=== PATIENT | female | born 1995 | race Caucasian/White ===

== ENCOUNTER 2020-04-29 09:06 | Observation (INO) | payer OTHER, BC ==
[2020-04-29] MEDS ORDERED: Lactated Ringers 1,000 ML IV ONE (10:17)
[2020-04-29] MEDS ORDERED: Celestone Soluspan 6MG/ML IM ONE (10:19)
[2020-04-29] MEDS ORDERED: Celestone Soluspan 6MG/ML ONE (10:22)
[2020-04-29 11:31] VITALS: BP 116/64; PULSE 90
== END 2020-04-29 10:50 | disposition home or self-care (01) ==
LOC: WHC 09:06 → OB 10:15 → UNDOADMOB 10:15 → UNDODISOB 10:50
PROVIDERS: ADMIT Obstetrics & Gynecology; ATTEND Obstetrics & Gynecology
DX: Z34.02 Encounter for supervision of normal first pregnancy, second trimester (principal)
CPT/HCPCS: 87081; 87086; 96372; G0378; 59425; J0702

== ENCOUNTER 2020-05-01 08:45 | Observation (INO) | payer OTHER, BC ==
[2020-05-01 10:20] VITALS: BP 106/61; PULSE 90
== END 2020-05-01 09:40 | disposition home or self-care (01) ==
LOC: OB 08:45
PROVIDERS: ADMIT Obstetrics & Gynecology; ATTEND Obstetrics & Gynecology
DX: Z34.03 Encounter for supervision of normal first pregnancy, third trimester (principal)
CPT/HCPCS: 59025; G0378

== ENCOUNTER 2020-05-30 03:09 | Inpatient (IN) | payer OTHER, BC ==
[2020-05-30] MEDS ORDERED: PITOCIN 30 UNITS/ LR 500 ML 500 ML IV ONE (03:25)
[2020-05-30] MEDS ORDERED: Lactated Ringers 1,000 ML IV ONE (03:26)
[2020-05-30] MEDS: Lactated Ringers 1,000 ML IV SCH ×2 (03:30→09:53)
[2020-05-30] MEDS ORDERED: XYLOCAINE 1% HCL 20 ML MDV ONE (04:06)
[2020-05-30] MEDS ORDERED: PITOCIN 30 UNITS/ LR 500 ML 30 UNITS/500 ML IV.SOLN. IV SCH (04:30)
[2020-05-30] MEDS ORDERED: TYLENOL EXTRA STRENGTH 500 MG PO PRN (05:47)
[2020-05-30] MEDS ORDERED: LANSINOH 40 GM TOP PRN (05:47)
[2020-05-30] MEDS ORDERED: TUCKS TP PRN (05:47)
[2020-05-30] MEDS ORDERED: Anucort-HC SUPPOSITORY PR PRN (05:47)
[2020-05-30] MEDS ORDERED: Dulcolax 10 MG SUPP PR PRN (05:47)
[2020-05-30] MEDS ORDERED: Dermoplast Spray TP PRN (05:47)
[2020-05-30] MEDS ORDERED: CORTISONE 1% CREAM TP PRN (05:47)
[2020-05-30] MEDS ORDERED: Mylicon 80MG PO PRN (05:47)
[2020-05-30] MEDS ORDERED: MOTRIN 400 MG PO PRN (05:47)
[2020-05-30 05:50] LABS: Hematocrit 36.9 % (35-47); Hemoglobin 12.5 gm/dl (12.0-16.0); Mean Cell Volume 88.3 fl (78-100); Mean Corpuscular Hemoglobin 29.9 pg (26-32); Mean Corpuscular Hgb Concent. 33.9 g/dl (32-36); Mean Platelet Volume 11.3 fl (7.5-11.0); Platelet Count 234 K/mm3 (150-450); Red Blood Count 4.18 M/mm3 (4.1-5.4); Red Cell Distribution Width 13.5 % (11.5-14.0); White Blood Count 22.4 K/mm3 (4.0-10.5)
[2020-05-30 09:45] LABS: Amphetamine,Urine NEGATIVE (NEGATIVE); Barbiturate,Urine NEGATIVE (NEGATIVE); Benzodiazepine,Urine NEGATIVE (NEGATIVE); Cocaine,Urine NEGATIVE (NEGATIVE); Methadone,Urine NEGATIVE (NEGATIVE); Opiate,Urine NEGATIVE (NEGATIVE); PCP,Urine NEGATIVE (NEGATIVE); THC,Urine NEGATIVE (NEGATIVE)
[2020-05-30] MEDS: Colace 100 MG PO SCH ×2 (10:59→21:45)
[2020-05-30] MEDS: FERREX 150 PO SCH (10:59)
[2020-05-30 11:17] LABS: ATYPICAL LYMPHS 1 %; BAND 1 % (0.0-2.0); Lymphocytes 8 % (24-44); Monocyte 8 % (0.0-12.0); Neutrophils 82 % (36.0-66.0); Platelet Estimate NORMAL (NORMAL); Total Cells Counted 100; Toxic Granulation 1+
[2020-05-30] MEDS: SYNTHROID 50 MCG PO SCH (16:43)
[2020-05-30] MEDS: THERAGRAN MULTIVITAMIN PO SCH (21:45)
[2020-05-31 04:50] LABS: Hematocrit 31.8 % (35-47); Hemoglobin 10.3 gm/dl (12.0-16.0); Mean Cell Volume 89.6 fl (78-100); Mean Corpuscular Hgb Concent. 32.4 g/dl (32-36); Mean Platelet Volume 11.3 fl (7.5-11.0); Platelet Count 225 K/mm3 (150-450); Red Blood Count 3.55 M/mm3 (4.1-5.4); Red Cell Distribution Width 13.8 % (11.5-14.0); White Blood Count 17.2 K/mm3 (4.0-10.5)
[2020-05-31 06:21] LABS: Eosinophil 2 % (0.00-3.0); Lymphocytes 26 % (24-44); Monocyte 3 % (0.0-12.0); Neutrophils 69 % (36.0-66.0); Platelet Estimate NORMAL (NORMAL); Total Cells Counted 100
[2020-05-31] MEDS: Colace 100 MG PO SCH ×2 (09:31→22:21)
[2020-05-31] MEDS: SYNTHROID 50 MCG PO SCH (09:31)
[2020-05-31] MEDS: FERREX 150 PO SCH (09:31)
[2020-05-31] MEDS ORDERED: NON-FORMULARY ITEM (Prenatal Vits W-Ca,Fe,Fa(<1mg) [Prenatal] 1 EACH) PO SCH (10:00)
[2020-05-31] MEDS: THERAGRAN MULTIVITAMIN PO SCH (22:21)
[2020-06-01 04:10] VITALS: O2SAT 98
[2020-06-01 08:03] VITALS: BP 109/59; PULSE 91
--- NOTE | 2020-06-01 09:27 | PCM.NOTE ---
Date and Time: 06/01/20924 Subjective Assessment: PPD 2 PT RESTING IN BED AND DOING WELL AMBULATING AND TOLERATING DIET VSS AFEBRILE ABD; SOFT UTERUS; FIRM LOCHIA; MILD EXT; NO CLUBBING CYANOSIS OR EDEMA A/P SP PPD 2 DC HOME TODAY FU OFFICE 6 WKS OBJECTIVE DATA Vital Signs: Vital Signs - 24 hr Temp Pulse Resp BP Pulse Ox 06/01/20 08:00 98.6 F 91 H 18 109/59 06/01/20 02:00 98.4 F 75 18 104/59 98 05/31/20 20:00 98.4 F 85 20 117/74 98 05/31/20 16:00 98.3 F 85 18 107/64 Pain Assessment - Last Documented Pain Intensity 0 Pain Scale Used 0-10 Pain Scale Intake and Output: Intake & Output 05/29/20 05/30/20 05/31/20 06/01/20 11:59 11:59 11:59 11:59 Intake Total 1920 2039 1789 Balance 1920 2039 1789 Weight 153 kg Lab Results: Lab Results-Last 24 Hours 05/30/20 Range/Units 05:35 Hep Bs Antigen Non Reactive (Non Reactive)
--- NOTE | 2020-06-01 09:36 | PCM.DCORD ---
- Discharge Prescriptions: No Action Levothyroxine Sodium 50 mcg PO DAILY Vits W-Ca,Fe,FA(<1Mg) [] 1 each PO DAILY Follow up with: ROLAN ENCISO DO [Primary Care Provider] - Call for Appointment (SHOULD FU IN OFFICE IN 6 WKS)
--- NOTE | 2020-06-01 09:39 | PCM.DS ---
Discharge Summary Date of Admission: 05/30/20 03:10 Date of Discharge: JUNE 01, 2020 Admitting Physician: ROLAN ENCISO DO Primary Care Provider: ROLAN ENCISO DO Allergies Allergies No Known Drug Allergies Allergy (Verified 05/30/20 07:51) Hospital Summary - Hospital Course Hospital Course: PT ADMITTED ON JUN 01 FOR BEING IN LABOR AT 38 PLUS WEEKS GESTATION AND DELIVERED LIVE BABY BOY WITHOUT COMPLICATION. DURING PERIOD PT DID VERY WELL ABLE TO AMBULATE AND TOLERATE DIET. PT HAD INTACT PERINEUM. PT ALSO HAD STABLE H/H DURING CARE AND ON THIS DAY DAY 2 PT STABLE FOR DISCHARGE. PT GIVEN INSTRUCTIONS TO FU IN OFFICE IN 6 WKS FOR CARE AND ALL QUESTIONS ANSWERED TO HER SATISFACTION. - Vitals & Intake/Output Vital Signs: Vital Signs Temperature 98.6 F 06/01/20 08:00 Pulse Rate 91 H 06/01/20 08:00 Respiratory Rate 18 06/01/20 08:00 Blood Pressure 109/59 06/01/20 08:00 O2 Sat by Pulse Oximetry 98 06/01/20 02:00 Intake & Output: Intake & Output 05/29/20 05/30/20 05/31/20 06/01/20 11:59 11:59 11:59 11:59 Intake Total 1920 2039 1789 Balance 1920 2039 1789 Weight 153 kg - Lab Result Diagrams: 05/31/20 04:19 Lab Results-Last 24 Hrs: Lab Results-Last 24 Hours 05/30/20 Range/Units 05:35 Hep Bs Antigen Non Reactive (Non Reactive) - Discharge Disposition: Home, Self-Care Condition: Stable Prescriptions: No Action Levothyroxine Sodium 50 mcg PO DAILY Vits W-Ca,Fe,FA(<1Mg) [] 1 each PO DAILY Follow up with: ROLAN ENCISO DO [Primary Care Provider] - Call for Appointment (SHOULD FU IN OFFICE IN 6 WKS)
== END 2020-06-01 11:50 | disposition home or self-care (01) | DRG 807 ==
LOC: OB 03:09 → OBSVTOIN 03:10
PROVIDERS: ADMIT Obstetrics & Gynecology; ATTEND Obstetrics & Gynecology
PROC: 10E0XZZ Delivery of Products of Conception, External Approach (ICD-10-PCS; principal; 2020-05-30)
DX: O99.89 Other specified diseases and conditions complicating pregnancy, childbirth and the puerperium (principal); Z37.0 Single live birth; R00.1 Bradycardia, unspecified; Z3A.38 38 weeks gestation of pregnancy
CPT/HCPCS: 36415; 80307; 85025; 87340; G0378; J2590; A9270-GY

== ENCOUNTER 2022-05-20 10:05 | Observation (INO) | payer BC ==
[2022-05-20 10:51] VITALS: O2SAT 100
[2022-05-20 11:02] VITALS: PULSE 103
[2022-05-20 11:08] VITALS: BP 127/57
== END 2022-05-20 12:05 | disposition home or self-care (01) ==
LOC: OB 10:05
PROVIDERS: ADMIT Obstetrics & Gynecology; ATTEND Obstetrics & Gynecology
DX: Z34.83 Encounter for supervision of other normal pregnancy, third trimester (principal); Z3A.37 37 weeks gestation of pregnancy
CPT/HCPCS: 99213; G0378

== ENCOUNTER 2022-05-26 05:05 | Inpatient (IN) | payer BC ==
[~2022-05-26 05:05] MED LIST: Adacel Vial IM ONE; Ambien 10 MG PO PRN; Anucort-HC SUPPOSITORY PR PRN; CORTISONE 1% CREAM TP PRN; Dermoplast Spray TP PRN; Dulcolax 10 MG SUPP PR PRN; LANSINOH 40 GM TOP PRN; MOTRIN 400 MG PO PRN; Mylicon 80MG PO PRN; NORCO 5/325 MG PO PRN; PITOCIN 30 UNITS/ LR 500 ML 30 UNITS/500 ML PLAST..BAG IV SCH; TUCKS TP PRN; TYLENOL EXTRA STRENGTH 500 MG PO PRN; XYLOCAINE 1% HCL 20 ML MDV IJ PRN; Zofran 4 MG/2 ML VIAL IV PRN
[2022-05-26] MEDS: Lactated Ringers 1,000 ML IV SCH ×2 (05:40→22:42)
[2022-05-26 05:52] LABS: Absolute Neutrophil Ct (ANC) 6.51 x10^3/uL (1.4-6.9); Basophil (Absolute #) 0.06 x10^3/uL (0-0.4); Eosinophil % 1.7 % (0.00-5.0); Eosinophil (Absolute #) 0.18 x10^3/uL (0-0.5); Hematocrit 31.8 % (35-47); Hemoglobin 10.3 g/dL (12.0-16.0); Lymphocyte (Absolute #) 2.88 x10^3/uL (1.0-4.6); Lymphocytes % 26.7 % (24.0-44.0); Mean Cell Volume 85.9 fL (78-100); Mean Corpuscular Hemoglobin 27.8 pg (26-32); Mean Corpuscular Hgb Concent. 32.4 g/dL (32-36); Mean Platelet Volume 10.6 fL (7.5-11.0); Monocyte (Absolute #) 0.84 x10^3/uL (0.0-1.3); Monocytes % 7.8 % (0.0-12.0); Neutrophil % 60.1 % (36.0-66.0); Platelet Count 206 x10^3/uL (150-450); Red Cell Distribution Width 12.7 % (11.5-14.0); White Blood Count 10.8 x10^3/uL (4.0-10.5)
[2022-05-26] MEDS ORDERED: OMNIPEN 2 GM*** 2 G in Sodium Chloride 100ML MINI-BAG PLUS 100 ML IV ONE (06:00)
[2022-05-26 06:49] LABS: ABO TYPING O; Antibody Screen NEGATIVE (NEGATIVE); RH TYPING POSITIVE
[2022-05-26 06:59] LABS: Amphetamine,Urine NEGATIVE (NEGATIVE); Barbiturate,Urine NEGATIVE (NEGATIVE); Benzodiazepine,Urine NEGATIVE (NEGATIVE); Methadone,Urine NEGATIVE (NEGATIVE); Opiate,Urine NEGATIVE (NEGATIVE); PCP,Urine NEGATIVE (NEGATIVE); THC,Urine NEGATIVE (NEGATIVE)
[2022-05-26] MEDS: Docusate Sodium 100 MG PO SCH ×2 (08:10→21:57)
[2022-05-26] MEDS: FERREX 150 PO SCH (08:11)
[2022-05-26] MEDS: OMNIPEN 1 GM*** 1 GM in Sodium Chloride 100ML MINI-BAG PLUS 100 ML IV SCH ×2 (09:27→22:42)
[2022-05-27 05:12] LABS: Absolute Neutrophil Ct (ANC) 9.45 x10^3/uL (1.4-6.9); Basophil (Absolute #) 0.07 x10^3/uL (0-0.4); Eosinophil % 1.7 % (0.00-5.0); Eosinophil (Absolute #) 0.24 x10^3/uL (0-0.5); Hematocrit 31.2 % (35-47); Lymphocyte (Absolute #) 3.31 x10^3/uL (1.0-4.6); Lymphocytes % 22.9 % (24.0-44.0); Mean Cell Volume 86.4 fL (78-100); Mean Corpuscular Hemoglobin 27.7 pg (26-32); Mean Corpuscular Hgb Concent. 32.1 g/dL (32-36); Mean Platelet Volume 10.5 fL (7.5-11.0); Monocytes % 7.6 % (0.0-12.0); Neutrophil % 65.2 % (36.0-66.0); Platelet Count 215 x10^3/uL (150-450); Red Blood Count 3.61 x10^6/uL (4.1-5.4); Red Cell Distribution Width 12.6 % (11.5-14.0); White Blood Count 14.5 x10^3/uL (4.0-10.5)
--- NOTE | 2022-05-27 07:50 | PCM.NOTE ---
Date and Time: 05/27/22747 Subjective Assessment: ppd 1 sp pt resting in bed and doing well eager to go home today vss afebrile abd; soft uterus; firm lochia; mild a/p sp ppd 1 dc home today fu office in 3 wks OBJECTIVE DATA Vital Signs: Vital Signs - 24 hr Temp Pulse Resp BP BP Pulse Ox 05/27/22 04:00 97.5 F 81 17 105/62 99 05/27/22 00:00 98.9 F 72 17 103/52 100 05/26/22 20:00 98.8 F 90 17 101/60 100 05/26/22 16:00 86 05/26/22 14:45 82 18 99/56 05/26/22 14:15 78 20 106/57 05/26/22 14:00 93 H 20 94/50 97 05/26/22 13:45 86 18 98/52 05/26/22 13:30 86 20 98/52 05/26/22 13:15 22 05/26/22 13:00 22 05/26/22 12:45 18 05/26/22 12:30 89 18 100/59 05/26/22 12:15 89 18 100/59 05/26/22 12:00 183 H 18 104/59 104/59 05/26/22 11:45 88 18 96/55 05/26/22 11:30 86 18 93/53 05/26/22 11:15 86 18 93/53 05/26/22 11:00 86 103/56 97 05/26/22 10:45 86 107/56 97 05/26/22 08:45 98.6 F 106 H 20 107/56 97 Pain Assessment - Last Documented Pain Intensity [Bilateral 0 Anterior] Pain Intensity 0 Intake and Output: Intake & Output 05/24/22 05/25/22 05/26/22 05/27/22 11:59 11:59 11:59 11:59 Intake Total 1280 Balance 1280 Weight 72.121 kg Lab Results: Lab Results-Last 24 Hours 05/27/22 Range/Units 05:05 WBC 14.5 H (4.0-10.5) x10^3/uL RBC 3.61 L (4.1-5.4) x10^6/uL Hgb 10.0 L (12.0-16.0) g/dL Hct 31.2 L (35-47) % MCV 86.4 (78-100) fL MCH 27.7 (26-32) pg MCHC 32.1 (32-36) g/dL RDW 12.6 (11.5-14.0) % Plt Count 215 (150-450) x10^3/uL MPV 10.5 (7.5-11.0) fL Gran % 65.2 (36.0-66.0) % Immature Gran % (Auto) 2.1 H (0.00-0.4) % Nucleat RBC Rel Count 0.0 (0.00-0.1) % Eos # (Auto) 0.24 (0-0.5) x10^3/uL Immature Gran # (Auto) 0.31 H (0.00-0.03) x10^3u/L Absolute Lymphs (auto) 3.31 (1.0-4.6) x10^3/uL Absolute Monos (auto) 1.10 (0.0-1.3) x10^3/uL Absolute Nucleated RBC 0.00 (0.00-0.01) x10^3u/L Lymphocytes % 22.9 L (24.0-44.0) % Monocytes % 7.6 (0.0-12.0) % Eosinophils % 1.7 (0.00-5.0) % Basophils % 0.5 (0.0-0.4) % Absolute Granulocytes 9.45 H (1.4-6.9) x10^3/uL Basophils # 0.07 (0-0.4) x10^3/uL Assessment/Plan (1) Vaginal delivery Current Visit: Yes Status: Acute Code(s): O80 - ENCOUNTER FOR FULL-TERM UNCOMPLICATED DELIVERY
--- NOTE | 2022-05-27 07:53 | PCM.DS ---
Discharge Summary Date of Admission: 05/26/22 10:30 Admitting Physician: ROLAN ENCISO DO Consults: Consults on Case 05/26/22 00:01 Notify Physician ROUTINE Primary Care Provider: NO FAMILY DOCTOR Allergies Allergies No Known Drug Allergies Allergy (Verified 05/26/22 22:40) Hospital Summary - Hospital Course Hospital Course: pt admitted on may 26 at 38 wks gestation who was noted being 6-7 cm in the office and was admitted for induction secondary to hx of previous precipitous delivery. pt had arom and was started on pitocin and delivered live baby girl without complication. during period did well and now stable for discharge. had stable hgb level at 10 and was advised to fu in office in 3 wks. all questions answered to her satisfaction. - Vitals & Intake/Output Vital Signs: Vital Signs Temperature 97.5 F 05/27/22 04:00 Pulse Rate 81 05/27/22 04:00 Respiratory Rate 17 05/27/22 04:00 Blood Pressure 105/62 05/27/22 04:00 O2 Sat by Pulse Oximetry 99 05/27/22 04:00 Intake & Output: Intake & Output 05/24/22 05/25/22 05/26/22 05/27/22 11:59 11:59 11:59 11:59 Intake Total 1280 Balance 1280 Weight 72.121 kg - Lab Result Diagrams: 05/27/22 05:05 Lab Results-Last 24 Hrs: Lab Results-Last 24 Hours 05/27/22 Range/Units 05:05 WBC 14.5 H (4.0-10.5) x10^3/uL RBC 3.61 L (4.1-5.4) x10^6/uL Hgb 10.0 L (12.0-16.0) g/dL Hct 31.2 L (35-47) % MCV 86.4 (78-100) fL MCH 27.7 (26-32) pg MCHC 32.1 (32-36) g/dL RDW 12.6 (11.5-14.0) % Plt Count 215 (150-450) x10^3/uL MPV 10.5 (7.5-11.0) fL Gran % 65.2 (36.0-66.0) % Immature Gran % (Auto) 2.1 H (0.00-0.4) % Nucleat RBC Rel Count 0.0 (0.00-0.1) % Eos # (Auto) 0.24 (0-0.5) x10^3/uL Immature Gran # (Auto) 0.31 H (0.00-0.03) x10^3u/L Absolute Lymphs (auto) 3.31 (1.0-4.6) x10^3/uL Absolute Monos (auto) 1.10 (0.0-1.3) x10^3/uL Absolute Nucleated RBC 0.00 (0.00-0.01) x10^3u/L Lymphocytes % 22.9 L (24.0-44.0) % Monocytes % 7.6 (0.0-12.0) % Eosinophils % 1.7 (0.00-5.0) % Basophils % 0.5 (0.0-0.4) % Absolute Granulocytes 9.45 H (1.4-6.9) x10^3/uL Basophils # 0.07 (0-0.4) x10^3/uL Final Diagnosis/Problem List - Final Discharge Diagnosis/Problem (1) Vaginal delivery Current Visit: Yes Status: Acute Code(s): O80 - ENCOUNTER FOR FULL-TERM UNCOMPLICATED DELIVERY - Discharge Disposition: Home, Self-Care Condition: Stable Prescriptions: No Action Levothyroxine Sodium [Levothyroxine] 25 mcg PO DAILY Additional Instructions: RETURN 2 DAYS AFTER DISCHARGE TO OB UNIT FOR YOU AND BABY. Follow up with: DOCTOR,NO FAMILY [Primary Care Provider] - ROLAN ENCISO DO [ACTIVE STAFF] - 3 weeks
--- NOTE | 2022-05-27 07:57 | PCM.HP ---
History of Present Illness - Chief Complaint Chief Complaint: IUP History of Present Illness: is a 27 year old female. 27 yo iup 38 wks currently admitted for induction secondary to having a hx of previous precipitous vaginal delivery and currently noted being 6-7 cm in the office with no feeling of uterine contx. pt was noted being gbs positive and is to receive at least two doses of antibiotics. care has been uneventful. denies srom or vaginal bleeding and states good movement. Medications & Allergies Home Medications: Home Medication List Levothyroxine Sodium [Levothyroxine] 25 mcg PO DAILY 05/26/22 [History Confirmed 05/26/22] Allergies/Adverse Reactions: Allergies Allergy/AdvReac Type Severity Reaction Status Date / Time No Known Drug Allergies Allergy Verified 05/26/22 22:40 - Past Medical History Past Medical History: Yes Neurological History: Migraines ENT History: No Pertinent History Cardiac History: No Pertinent History Respiratory History: No Pertinent History Endocrine Medical History: Hypothyroidism Musculoskelatal History: No Pertinent History GI Medical History: No Pertinent History History: No Pertinent History Pyscho-Social History: No Pertinent History Reproductive Disorders: Endometriosis, Other Comment: PCOS - Female History Expected Date of Delivery: 06/09/22 - Past Surgical History Past Surgical History: Yes Neuro Surgical History: No Pertinent History Cardiac History: No Pertinent History Respiratory Surgery: No Pertinent History GI Surgical History: No Pertinent History Genitourinary Surgical Hx: No Pertinent History Musculskeletal Surgical Hx: No Pertinent History Female Surgical History: Other Other Surgical History: OVARIAN CYST 2018 T&A 2014 - Social History Smoking Status: Never smoker Exposure to second hand smoke: Yes Alcohol: None Drug Use: none - Physical Exam Vital Signs: Vital Signs - 24 hr Temp Pulse Resp BP BP Pulse Ox 05/27/22 04:00 97.5 F 81 17 105/62 99 05/27/22 00:00 98.9 F 72 17 103/52 100 05/26/22 20:00 98.8 F 90 17 101/60 100 05/26/22 16:00 86 05/26/22 14:45 82 18 99/56 05/26/22 14:15 78 20 106/57 05/26/22 14:00 93 H 20 94/50 97 05/26/22 13:45 86 18 98/52 05/26/22 13:30 86 20 98/52 05/26/22 13:15 22 05/26/22 13:00 22 05/26/22 12:45 18 05/26/22 12:30 89 18 100/59 05/26/22 12:15 89 18 100/59 05/26/22 12:00 183 H 18 104/59 104/59 05/26/22 11:45 88 18 96/55 05/26/22 11:30 86 18 93/53 05/26/22 11:15 86 18 93/53 05/26/22 11:00 86 103/56 97 05/26/22 10:45 86 107/56 97 05/26/22 08:45 98.6 F 106 H 20 107/56 97 General Appearance: no apparent distress Neurologic Exam: alert, oriented x 3 Gastrointestinal/Abdomen Exam: soft Pelvic Exam: other (/-2/vtx/intact) Results - Labs Lab/Micro Results: Lab Results-Last 24 Hours 05/27/22 Range/Units 05:05 WBC 14.5 H (4.0-10.5) x10^3/uL RBC 3.61 L (4.1-5.4) x10^6/uL Hgb 10.0 L (12.0-16.0) g/dL Hct 31.2 L (35-47) % MCV 86.4 (78-100) fL MCH 27.7 (26-32) pg MCHC 32.1 (32-36) g/dL RDW 12.6 (11.5-14.0) % Plt Count 215 (150-450) x10^3/uL MPV 10.5 (7.5-11.0) fL Gran % 65.2 (36.0-66.0) % Immature Gran % (Auto) 2.1 H (0.00-0.4) % Nucleat RBC Rel Count 0.0 (0.00-0.1) % Eos # (Auto) 0.24 (0-0.5) x10^3/uL Immature Gran # (Auto) 0.31 H (0.00-0.03) x10^3u/L Absolute Lymphs (auto) 3.31 (1.0-4.6) x10^3/uL Absolute Monos (auto) 1.10 (0.0-1.3) x10^3/uL Absolute Nucleated RBC 0.00 (0.00-0.01) x10^3u/L Lymphocytes % 22.9 L (24.0-44.0) % Monocytes % 7.6 (0.0-12.0) % Eosinophils % 1.7 (0.00-5.0) % Basophils % 0.5 (0.0-0.4) % Absolute Granulocytes 9.45 H (1.4-6.9) x10^3/uL Basophils # 0.07 (0-0.4) x10^3/uL Assessment/Plan (1) Vaginal delivery Current Visit: Yes Status: Acute Code(s): O80 - ENCOUNTER FOR FULL-TERM UNCOMPLICATED DELIVERY (2) cervical dil Current Visit: Yes Status: Acute
[2022-05-27] MEDS: FERREX 150 PO SCH (10:11)
[2022-05-27] MEDS: Docusate Sodium 100 MG PO SCH (10:11)
[2022-05-27 13:21] LABS: HBsAg Screen Negative (Negative)
[2022-05-27 16:59] VITALS: BP 115/57; PULSE 68; O2SAT 98
== END 2022-05-27 16:43 | disposition home or self-care (01) | DRG 807 ==
LOC: OB 05:05 → OBSVTOIN 10:30
PROVIDERS: ADMIT Obstetrics & Gynecology; ATTEND Obstetrics & Gynecology
PROC: 10E0XZZ Delivery of Products of Conception, External Approach (ICD-10-PCS; principal; 2022-05-26)
DX: O99.824 Streptococcus B carrier state complicating childbirth (principal); Z37.0 Single live birth; Z3A.38 38 weeks gestation of pregnancy; E03.9 Hypothyroidism, unspecified; Z20.828 Contact with and (suspected) exposure to other viral communicable diseases; Z87.59 Personal history of other complications of pregnancy, childbirth and the puerperium
CPT/HCPCS: 36415; 80307; 85025; 86850; 86900; 86901; 87340; J0290; J2590; A9270-GY